=== PATIENT | female | born 1990 | race Two or more races ===

== ENCOUNTER 2018-07-17 09:38 | Inpatient (IN) | payer OTHER ==
[~2018-07-17] VITALS: Ht 160 cm; Wt 48.1 kg
[~2018-07-17 09:38] MED LIST: KETO10TA2 PO; ORPH100T PO
--- NOTE | 2018-07-17 10:25 | NUR ---
SE RECIBE PTE. FEMENINA ALERTA CONCIENTE Y ORIENTADA QUE REFIERE DOLOR ABDOMINAL QUE COMENZO HACE ELAINE ARROYO REFIERE DOLOR ES INTERMITENTE AHORA LO TIENE EN 5.
--- NOTE | 2018-07-17 11:07 | NUR ---
PACIENTE ALERTA,ACTIVA Y ORIENTADA.SE ORIENTA DE TRATAMINETO REGINO ORDEN MEDICA REFIERE ENTENDER.SE ALEXANDRU MUESTRAS Y SE CANALIZA CON MEDIDAS ASEPTICAS CORRES- PONDIENTES.SE ENTREGA CONTRASTE Y SE ORIENTA DE USO Y NOTIFICAR AL TERMINAR. OPAL DE DUDAS.
== END 2018-07-19 12:22 | disposition home or self-care (01) | DRG 389 ==
LOC: ER 09:38 → SURH 16:13 → SEC-K 16:13 → SURH 18:04
PROVIDERS: ADMIT Surgery
PROC: BW21ZZZ Computerized Tomography (CT Scan) of Abdomen and Pelvis (ICD-10-PCS; principal; 2018-07-17)
DX: K56.1 Intussusception (principal); K62.5 Hemorrhage of anus and rectum

== ENCOUNTER 2021-10-20 09:47 | Emergency (ER) | payer OTHER ==
[~2021-10-20] VITALS: Ht 157.5 cm; Wt 50.8 kg
[2021-10-20] MEDS ORDERED: PREDNISONE2.5 MG (10:22)
== END 2021-10-20 16:15 | disposition home or self-care (01) ==
LOC: ER 09:47
DX: M94.0 Chondrocostal junction syndrome [Tietze] (principal)

== ENCOUNTER → 2021-12-01 | Emergency (ER) | payer OTHER ==
[~2021-12-01] VITALS: Ht 157.5 cm; Wt 49.9 kg
[~2021-12-01] MED LIST changes: +PREDNISONE2.5 MG
== END | disposition home or self-care (01) ==
LOC: ER 11:43
DX: N39.0 Urinary tract infection, site not specified (principal)

== ENCOUNTER 2023-12-05 13:22 | Outpatient (CLI) | payer OTHER | END 2023-12-05 13:29 | disposition home or self-care (01) | LOC: RAD 13:22 | PROVIDERS: ATTEND Physical Medicine & Rehabilitation | DX: S90.32XA Contusion of left foot, initial encounter (principal) ==

== ENCOUNTER 2024-03-10 09:15 | Emergency (ER) | payer OTHER ==
[~2024-03-10] VITALS: Ht 160 cm; Wt 49.9 kg
[2024-03-10 09:19] VITALS: BP 76/57; O2SAT 99
[2024-03-10 10:22] LABS: HEMOGLOBIN 14.4 g/dL (12.0-15.00); MEAN CELL VOLUME 90.8 fL (80.00-100.00); MEAN CORPUSCULAR HEMOGLOBIN 31.2 pg (27.00-32.0); MEAN CORPUSCULAR HGB CONC 34.4 g/dl (32.0-36.0); PLATELET COUNT 195 K/uL (150-450); RED BLOOD COUNT 4.63 M/uL (4.00-6.00); RED CELL DISTRIBUTION WIDTH 14.5 % (11.5-14.5)
[2024-03-10] MEDS ORDERED: OSEL75CA PO (11:35)
== END 2024-03-10 11:42 | disposition home or self-care (01) ==
LOC: ER 09:17
PROVIDERS: Emergency Medicine
DX: R53.81 Other malaise (principal); J10.1 Influenza due to other identified influenza virus with other respiratory manifestations; Z20.822 Contact with and (suspected) exposure to COVID-19

== ENCOUNTER 2024-03-26 10:13 | Emergency (ER) | payer OTHER ==
[~2024-03-26] VITALS: Ht 160 cm; Wt 49.9 kg
[~2024-03-26 10:13] MED LIST changes: +OSEL75CA PO
[2024-03-26] MEDS ORDERED: NEURONTIN300 MG PO (12:04)
[2024-03-26] MEDS ORDERED: ZOVIRAX800 MG PO (12:04)
== END 2024-03-26 13:22 | disposition home or self-care (01) ==
LOC: ER 10:15
DX: B02.9 Zoster without complications (principal)

== ENCOUNTER 2025-01-14 06:17 | Emergency (ER) | payer OTHER ==
[~2025-01-14] VITALS: Ht 160 cm; Wt 49.9 kg
[~2025-01-14 06:17] MED LIST changes: +NEURONTIN300 MG PO; +ZOVIRAX800 MG PO
[2025-01-14 09:30] LABS: URINE APPEARANCE Clear; URINE BILIRRUBIN Negative (NEGATIVE); URINE BLOOD Negative; URINE COLOR Yellow; URINE GLUCOSE Negative (NEGATIVE); URINE KETONE Negative (NEGATIVE); URINE LEUKOCYTE Moderate; URINE NITRATE Negative; URINE PROTEIN Negative (NEGATIVE); URINE UROBILINOGEN 0.2 E.U./dl
[2025-01-14 09:32] LABS: URINE BACTERIA 357.6 uL (0.0-1933); URINE EPITHELIAL CELLS 71.3 uL (0.0-38.8); URINE RBC 7.6 uL (0.0-20.8); URINE WBC 7.0 uL (0.0-23.2)
[2025-01-14 09:58] LABS: URINE CAST 0.00 uL (0.0-1.40)
== END 2025-01-14 10:48 | disposition home or self-care (01) ==
LOC: ER 06:17
PROVIDERS: General Practice
DX: B37.31 Acute candidiasis of vulva and vagina (principal)